=== PATIENT | female | born 2000 | race African-American/Black ===

== ENCOUNTER → 2021-05-24 02:41 | Outpatient (CLI) | payer OTHER, SELFPAY ==
[2021-05-24 19:39] LABS: SARS-CoV-2 RNA PCR Negative
== END ==
PROVIDERS: Nurse Practitioner Gerontology; PCP Family Medicine; Visit Provider Family Medicine
DX: Z20.822 Contact with and (suspected) exposure to COVID-19 (principal)
CPT/HCPCS: C9803; U0003; U0005

== ENCOUNTER 2023-07-02 14:45 | Outpatient (CLI) | payer OTHER, SELFPAY ==
[2023-07-02 16:11] LABS: SARS-CoV-2 RNA PCR Negative (Negative)
== END 2023-07-02 14:46 | disposition home or self-care (01) ==
LOC: ANHLAB 14:47
PROVIDERS: PCP Family Medicine; Visit Provider Physician Assistant
DX: J02.9 Acute pharyngitis, unspecified (principal); Z20.822 Contact with and (suspected) exposure to COVID-19
CPT/HCPCS: 87635

== ENCOUNTER 2024-04-23 16:53 | Outpatient (CLI) | payer OTHER, SELFPAY ==
[2024-04-23 17:46] LABS: Influenza A QL RT-PCR Negative (Negative); Influenza B QL RT-PCR Negative (Negative); RSV RNA, RT-PCR Negative (Negative); SARS-CoV-2 RNA PCR Negative (Negative)
== END 2024-04-23 16:54 | disposition home or self-care (01) ==
LOC: ANHLAB 16:55
PROVIDERS: PCP Family Medicine; Visit Provider Student in an Organized Health Care Education/Training Program
DX: R05.9 Cough, unspecified (principal)
CPT/HCPCS: 87637

== ENCOUNTER 2024-07-14 09:43 | Outpatient (CLI) | payer OTHER, SELFPAY ==
--- OUTSIDE RECORDS SUMMARY | 2024-07-14 10:40 | XMS_ITS | Referral Summary ---
Author Organization [facility] [employer] Address [address] [place] [address] Care Team Providers Care Daily Release And Dupe Printer Name Role Phone Unavailable Primary Care Provider Unavailabl e Source Comments [facility],non-owned Affiliates and Associated Physician Practices is amultiple site organization consisting of ambulatory clinics and hospital sitesin [place], [place], [place] and [place]. This disclosure is being madepursuant to the Care Everywhere program and may not contain all information available regarding this patient. Last updated 18.[facility] [employer] Allergies No known active allergies Medications Be aware that medications may not be up to date on this document. Always verify current medications with the patient. 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 (F LUZONE; FLULAVAL; FLUARIX; AFLURIA QUADRIVALENT; 6MO+), 0.5 ML (IIV4) 04/25/2020,04/14/2019,04/17/2018,03/08,06/13/2015,01/23/2014 Influenza Nasal 04/05/2012 MENINGOCOCCAL CONJUGATE (MCV4P) 10/30/2016,01/23 MMR 05/30/2004,06/30/2001 PNEUMOCOCCAL CONJ, PEDS 08/25/2001,11/25,2000,07/12 POLIO IPV 05/30/2004, 1,2000,07/12 TDAP (7yrs+) 02/01/2012 VARICELLA 01/23/2014,06/30/2001 Social History Tobacco Use Types Packs/Day Years Used Date Smoking Tobacco: Never Smokeless Tobacco: Never Alcohol Use Standard Drinks/Week Comments Not Asked 0 (1 standard drink = 0.6 oz pur e alcohol) Sex and Gender Information Value Date Recorded Sex Assigned at Not on file Gender Identity Not on file Sexual Orientation Not on file Last Filed Vital Signs Vital Sign Reading Time Taken Comments Blood Pressure 112/75 07/21/2020 2:49 PM GASTROENTEROLOGY TEACHER Pulse 102 07/21/2020 2:49 PM GASTROENTEROLOGY TEACHER Temperature 36.7 C (98.1 F) 06/01/2019 3:22 PM GASTROENTEROLOGY TEACHER Respiratory Rate - - Oxygen Saturation - - Inhaled Oxygen Concentration - - Weight 66 kg (145 lb 9.6 oz) 07/21/2020 2:49 PM GASTROENTEROLOGY TEACHER Height 163.8 cm (5' 4.5 ) 11/12/2019 3:32 PM CDT Body Mass Index 24.61 11/12/2019 3:32 PM CDT Plan of Treatment Not on file Goals Goal Patient Goal Type Associated Problems Recent Progress Patient-Stated? Author Use safety retraint in car Lifestyle On track( 020 3:31 PM CDT) Екатерина Quezada, RN SHAYLEE BAUER Personal/Famil y [address] [place] [address]
--- OUTSIDE RECORDS SUMMARY | 2024-07-14 10:40 | XMS_ITS | Clinical Summary ---
Author Organization [facility] [employer] Address [address] [place] [address] Care Team Providers Care Coke Loader Name Role Phone Unavailable Primary Care Provider Unavailabl e Source Comments [facility] [employer],non-owned Affiliates and Associated Physician Practices is amultiple site organization consisting of ambulatory clinics and hospital sitesin [place], [place], [place] and [place]. This disclosure is being madepursuant to the Care Everywhere program and may not contain all information available regarding this patient. Last updated 18.[facility] [employer] Allergies No known active allergies Medications Be [...] 05/30/2004, 1,2000,07/12 TDAP (7yrs+) 02/01/2012 VARICELLA 01/23/2014,06/30/2001 Family History Medical History Relation Name Comments Diabetes Maternal Grandmother Hypertension Maternal Grandmother Arthritis Mother Diabetes Paternal Grandfather Hypercholesterolemia Paternal Grandmother Relation Name Status Comments Maternal Grandmother Mother Paternal Grandfather Paternal Grandmother Social History Tobacco Use Types Packs/Day Years [...] Comments Blood Pressure 112/75 07/21/2020 2:49 PM HYDROMETER TESTER Pulse 102 07/21/2020 2:49 PM HYDROMETER TESTER Temperature 36.7 C (98.1 F) 06/01/2019 3:22 PM HYDROMETER TESTER Respiratory Rate - - Oxygen Saturation - - Inhaled Oxygen Concentration - - Weight 66 kg (145 lb 9.6 oz) 07/21/2020 2:49 PM HYDROMETER TESTER Height 163.8 cm (5' 4.5 ) 11/12/2019 3:32 PM CDT Body Mass Index 24.61 11/12/2019 3:32 PM CDT Plan of Treatment Health Maintenance Due Date Last Done Comments PAP SMEAR 2000 HIV SCREENING 2015 CHLAMYDIA/GONORRHEA SCREENING 2016 HEPATITIS C SCREENING 05/16/2018 DTAP/TDAP/TD VACCINES (7 - Td or Tdap) 01/31/2022 02/01/2012, 05/30/2004, 08/25/2001, Additional history exists COVID-19 VACCINE ( season) 2024 INFLUENZA VACCINE (#1) 2024 0, 04/14/2019, 04/17/2018, Additional history exists DEPRESSION SCREENING 06/03/2024 ZOSTER VACCINE (1 of 2) 2050 HEPATITIS B VACCINE Completed 2000, 2000, 2000 HIB VACCINE Completed 08/25/2001, 11/02, 2000, Additional history exists PNEUMOCOCCAL VACCINE Completed 08/25/2001, 2000, 2000, Additional history exists HPV VACCINE Completed 06/13/2015, 01/23/2014 MENINGOCOCCAL VACCINE Completed 10/30/2016, 014 MENINGOCOCCAL (Group B) VACCINE Aged Out No longer eligible based on patient's age to complete this topic Goals Goal Patient Goal Type Associated Problems Recent Progress Patient-Stated? Author Use safety retraint in car Lifestyle On track( 020 3:31 PM CDT) Екатерина Quezada, RN SHAYLEE BAUER Personal/Famil y [address] [place] [address]
--- OUTSIDE RECORDS SUMMARY | 2024-07-14 10:40 | XMS_ITS | Encounter Summary ---
Author Organization [facility] Address [address] [place] [address] Care Team Providers Care Food And Nutrition Services Supervisor Name Role Phone Trena Kinney MD Primary Care Provider [phone] Encounter Details Date Type Department Care Team (Late st Contact Info) Description [address] [facility] Outpatient Visit [facility] [address] [place] [phone] Trena Kinney MD [address] [place] [phone] Social History Tobacco Use Types Packs/Day Years Used Date Smoking Tobacco: Never Assessed Sex and Gender Information Value Date Recorded Sex Assigned at Not on file Gender Identity Not on file Sexual Orientation Not on file documented as of this encounter Plan of Treatment Not on file documented as of this encounter Visit Diagnoses Not on filedocumented in this encounter Care Teams Food And Nutrition Services Supervisor Relationship Specialty Start Date End Date Trena Kinney MD [address] [place] [phone] PCP - General 06/08/11 04/09/21 documented as of this encounter
--- OUTSIDE RECORDS SUMMARY | 2024-07-14 10:40 | XMS_ITS | Encounter Summary ---
Author Organization [facility] Address [address] [place] [address] Care Team Providers Care Windows Deployment Technician Name Role Phone Trena Kinney MD Primary Care Provider [phone] Encounter Details Date Type Department Care Team (Late st Contact Info) Description 02/09/2015 [facility] Outpatient Visit CG DEFAULT [address] [place], [place] [id number] Unknown, Provider Social History Tobacco Use Types Packs/Day Years Used Date Smoking Tobacco: Never Alcohol Use Standard Drinks/Week Comments Not Asked 0 (1 standard drink = 0.6 oz pur e alcohol) Sex and Gender Information Value Date Recorded Sex Assigned at Not on file Gender Identity Not on file Sexual Orientation Not on file documented as of this encounter Plan of Treatment Not on file documented as of this encounter Goals Goal Patient Goal Type Associated Problems Recent Progress Patient-Stated? Author Use safety retraint in car Lifestyle On track( 020 3:31 PM CDT) No Еактерина Yarbrough RN documented as of this encounter Visit Diagnoses Not on filedocumented in this encounter Care Teams Windows Deployment Technician Relationship Specialty Start Date End Date Trena Kinney MD [address] [place] [phone] PCP - General 06/08/11 04/09/21 documented as of this encounter
--- OUTSIDE RECORDS SUMMARY | 2024-07-14 10:40 | XMS_ITS | Patient Health Summary ---
Author Organization [facility] [employer] Address [address] [place] [address] Care Team Providers Care Wage Hand Name Role Phone Unavailable Primary Care Provider Unavailabl e Note from [facility],non-owned Affiliates and Associated Physician Practices is amultiple site organization consisting of ambulatory clinics and hospital sitesin [place], [place], [place] and [place]. This disclosure is being madepursuant to the Care Everywhere program and may not contain all information available regarding this patient. Last updated 18.[facility] [employer] Allergies No known active allergies Medications Be [...] Receptive expressive language disorder 11/20/2010 06/01/2019 Immunizations * DTaP VACCINE IM (6wk-6yrs)(Given 05/30/2004, 08/25/2001, 2000, 2000, 2000) * HEP A PEDS 2 DOSE(Given 06/13/2015, 01/23/2014) * HEP B VACCINE, PED/ADOL(Given 2000, 2000, 2000) * HIB BOOSTER(Given 08/25/2001, 2000, 2000, 2000) * Human Papilloma Virus Quadrivalent Vaccine(Given 06/13/2015, 01/23/2014) * INFLUENZA VACCINE, QUADR. (FLUZONE; FLULAVAL; FLUARIX; AFLURIA QUADRIVALENT; 6MO+), 0.5 ML (IIV4)(Given 04/25/2020, 04/14/2019, 04/17/2018, 03/08/2017, 06/13/2015, 01/23/2014) * Influenza Nasal(Given 04/05/2012) * MENINGOCOCCAL CONJUGATE (MCV4P)(Given 10/30/2016, 01/23/2014) * MMR(Given 05/30/2004, 06/30/2001) * PNEUMOCOCCAL CONJ, PEDS(Given 08/25/2001, 2000, 2000, 2000) * POLIO IPV(Given 05/30/2004, 2000, 2000, 2000) * TDAP (7yrs+)(Given 02/01/2012) * VARICELLA(Given 01/23/2014, 06/30/2001) Social History Tobacco Use Types Packs/Day Years [...] Comments Blood Pressure 112/75 07/21/2020 2:49 PM BIOMEDICAL EQUIPMENT TECHNICIAN Pulse 102 07/21/2020 2:49 PM BIOMEDICAL EQUIPMENT TECHNICIAN Temperature 36.7 C (98.1 F) 06/01/2019 3:22 PM BIOMEDICAL EQUIPMENT TECHNICIAN Respiratory Rate - - Oxygen Saturation - - Inhaled Oxygen Concentration - - Weight 66 kg (145 lb 9.6 oz) 07/21/2020 2:49 PM BIOMEDICAL EQUIPMENT TECHNICIAN Height 163.8 cm (5' 4.5 ) 11/12/2019 3:32 PM CDT Body Mass Index 24.61 11/12/2019 3:32 PM CDT Procedures * LIPID PROFILE+GLUCOSE - POINT OF CARE (AMB)(Performed 11/12/2019) Performed for Routine general medical examination at a health care facility, Screening cholesterol level * CULTURE RESPIRATORY UPPER(Performed 06/18/2016) * STREP A SCREEN - POINT OF CARE (AMB)(Performed 06/18/2016) Performed for Sore throat * INFLUENZA A+B - POINT OF CARE (AMB)(Performed 05/18/2013) Performed for Influenza A, Fever presenting with conditions classified elsewhere * STREP A SCREEN - POINT OF CARE (AMB)(Performed 05/18/2013) Performed for Fever presenting with conditions classified elsewhere * STREP A SCREEN - POINT OF CARE (AMB)(Performed 02/01/2012) Performed for Acute pharyngitis * XR SCOLIOSIS 1VW(Performed 11/14/2011) Performed for Scoliosis * CULTURE THROAT(Performed 08/06/2011) * STREP A SCREEN - POINT OF CARE (AMB)(Performed 08/06/2011) Performed for Acute pharyngitis * XR SCOLIOSIS 1VW(Performed 07/04/2011) Performed for Scoliosis * XR CHEST 2VW(Performed 03/25/2011) * XR CHEST 2VW(Performed 01/10/2011) Performed for Cough * XR SCOLIOSIS 2 OR 3VW(Performed 01/10/2011) Performed for Scoliosis * XR CHEST 2VW(Performed 08/27/2010) * STREP A SCREEN - POINT OF CARE (AMB)(Performed 04/12/2010) Performed for Sore throat * XR SCOLIOSIS 2 OR 3VW(Performed 09/01/2009) Performed for Scoliosis Results * (ABNORMAL) LIPID PROFILE+GLUCOSE - POINT OF CARE (AMB) (11/12/2019 3:52 PM CDT) QC Verified Yes Yes Cholesterol POCT 150 240 mg/dL HDL POCT 45 60 mg/dL Triglycerides POCT 77 200 mg/dL LDL 90 160 mg/dL Non HDL Cholesterol POCT 106 130 mg/dL Total Cholesterol/HDL Ratio POCT 3.4 6.0 Glucose 133(A) 70 - 126 mg/dL Blood BLOOD SPECIMEN / Unknown 11/12/2019 3:52 PM CDT Trena Kinney MD LAB - POINT OF CARE ORDERABLES * CULTURE RESPIRATORY UPPER (06/18/2016 12:45 PM BIOMEDICAL EQUIPMENT TECHNICIAN) Upper Respiratory Culture Final report [facility] INSURANCE BILL Result 1 [facility] INSURANCE BILL Comment:Routine respiratory jama 06/18/2016 12:4 5 PM BIOMEDICAL EQUIPMENT TECHNICIAN 06/18/2016 Narrative Resulting Agency Comment [facility] [address] [id number] Joss White DO LAB - MICROBIOL OGY ORDERABLES [facility] INSURANCE BILL [address] [place] [address] * STREP A SCREEN - POINT OF CARE (AMB) (06/18/2016) Only the most recent of5 resultswithin the time period is included. Strep A Rapid POCT Negative Negative Strep A Internal Control Present Other ENTIRE THROAT (SURFACE REGION OF NECK) / Unknown 06/18/2016 Joss White DO LAB - POINT OF CARE ORDERABLES * (ABNORMAL) INFLUENZA A+B - POINT OF CARE (AMB) (05/18/2013 3:20 PM BIOMEDICAL EQUIPMENT TECHNICIAN) Influenza A Antigen Rapid Positive(A) Negative Influenza B Antigen Rapid Negative Negative Influenza Internal Control NEGATIVE - POSITIVE Influenza Lot Number Influenza Expiration Date Nasopharyngeal swab (specimen) SPECIMEN FROM NASOPHARYNGEAL STRUCTURE / Unknown 05/18/2013 3:20 PM BIOMEDICAL EQUIPMENT TECHNICIAN Trena Kinney MD LAB - POINT OF CARE ORDERABLES * XR SPINE SCOLIOSIS 1 VIEW STANDING (11/14/2011 9:23 AM CDT) Only the most recent of2 resultswithin the time period is included. Anatomical Region Laterality Modality Spine Radiographic Pat ging 11/14/2011 10:5 7 AM CDT Impressions 11/14/2011 4:54 PM CDT Idiopathic scoliosis, slightly decreased. D: Chito Bunch MD Narrative 11/14/2011 4:54 PM CDT Scoliosis PA, LATERAL STANDING Findings: There is 12 rib-bearing thoracic vertebrae and 5 ofu-qtg-pmyjfsc lumbar vertebrae. A right scoliosis between T7 and T12 is 12 degrees, an decreased of 5 degrees since 07/04/2011. A left scoliosis between T12 and L5 is 10 degrees, a decrease of 6 degrees. There is no evidence of vertebral body abnormality. The left iliac crest remains higher than the right but unchanged. Procedure Note Chetan Gore MD - 11/14/2011 Scoliosis PA, LATERAL STANDING Findings: There is 12 rib-bearing thoracic vertebrae and 5 kxx-tqv-xxzjzss lumbar vertebrae. A right scoliosis between T7 and T12 is 12 degrees, an decreased of 5 degrees since 07/04/2011. A left scoliosis between T12 and L5 is 10 degrees, a decrease of 6 degrees. There is no evidence of vertebral body abnormality. The left iliac crest remains higher than the right but unchanged. IMPRESSION Idiopathic scoliosis, slightly decreased. D: Chito Bunch MD Manuel Hood MD DIAGNOSTIC IMAGING O RDYESIKA * CULTURE THROAT (08/06/2011 2:38 PM BIOMEDICAL EQUIPMENT TECHNICIAN) Upper Respiratory Culture Final report [facility] INSURANCE BILL Result 1 [facility] INSURANCE BILL Comment:Routine respiratory jama ENTIRE PHARYNX / Unknown 08/06/2011 2:38 PM BIOMEDICAL EQUIPMENT TECHNICIAN 08/06/2011 10:32 PM BIOMEDICAL EQUIPMENT TECHNICIAN Narrative Resulting Agency Comment [facility] [phone] Trena Kinney MD LAB - MICROBIOLOGY O RDERABLES [facility] INSURANCE BILL * XR CHEST PA AND LATERAL (03/25/2011) Only the most recent of3 resultswithin the time period is included. Anatomical Region Laterality Modality Chest Other Emergency Physician DIAGNOSTIC IMAGING O RDERABLES * XR SPINE SCOLIOSIS 2 VW (01/10/2011) Only the most recent of2 resultswithin the time period is included. Anatomical Region Laterality Modality Spine Other La Dawn MD DIAGNOSTIC IMAGING O RDERABLES
--- OUTSIDE RECORDS SUMMARY | 2024-07-14 10:40 | XMS_ITS | Encounter Summary ---
Author Organization [facility] Address [address] [place] [address] Care Team Providers Care Admission Specialist Name Role Phone Trena Kinney MD Primary Care Provider [phone] Encounter Details Date Type Department Care Team (Late st Contact Info) Description 05/01/2013 [facility] Outpatient Visit CG DEFAULT [address] [place] [address] Unknown, Provider Social History Tobacco Use Types [...] on filedocumented in this encounter Care Teams Admission Specialist Relationship Specialty Start Date End Date Trena Kinney MD [address] [place] [phone] PCP - General 06/08/11 04/09/21 documented as of this encounter
--- OUTSIDE RECORDS SUMMARY | 2024-07-14 10:40 | XMS_ITS | Encounter Summary ---
Author Organization [facility] Address [address] [place] [address] Care Team Providers Care Greige Goods Examiner Name Role Phone Trena Kinney MD Primary Care Provider [phone] Encounter Details Date Type Department Care Team (Late st Contact Info) Description 09/02/2013 [facility] Outpatient Visit CG DEFAULT [address] [place] [address] Unknown, Provider Social History Tobacco Use Types [...] on filedocumented in this encounter Care Teams Greige Goods Examiner Relationship Specialty Start Date End Date Trena Kinney MD [address] [place] [phone] PCP - General 06/08/11 04/09/21 documented as of this encounter
[2024-07-14 10:49] LABS: Strep Group A RT-PCR DETECTED (Negative)
[2024-07-14 11:04] LABS: Influenza A QL RT-PCR Negative (Negative); Influenza B QL RT-PCR Negative (Negative); RSV RNA, RT-PCR Negative (Negative); SARS-CoV-2 RNA PCR Negative (Negative)
== END 2024-07-14 09:44 | disposition home or self-care (01) ==
LOC: ANHLAB 09:44
PROVIDERS: PCP Family Medicine; Visit Provider Physician Assistant
DX: J02.9 Acute pharyngitis, unspecified (principal); Z20.822 Contact with and (suspected) exposure to COVID-19
CPT/HCPCS: 87637; 87651